=== PATIENT | male | born 1970 | race Caucasian/White ===

== ENCOUNTER 2019-02-05 11:07 | Day surgery (SDC) | payer SELFPAY ==
[~2019-02-05 11:07] MED LIST: HYDROmorphone 2 MG/ML VIAL IV PRN; IV RINGERS,LACTATED 1000ML 1,000 ML IV SCH; MORPHINE SULFATE 2 MG/ML VIAL. IV PRN; ONDANSETRON PF 4 MG/2 ML VIAL. IV PRN; PROCHLORPERAZINE 10 MG/2 ML VIAL. IV PRN; fentaNYL PF VIAL 100 MCG/2 ML VIAL IV PRN
[2019-02-05] MEDS ORDERED: DORZ10DR21 EACHEYE (11:37)
[2019-02-05] MEDS ORDERED: CETI10TA22 PO (11:37)
[2019-02-05] MEDS ORDERED: LATA2.5D3 EACHEYE (11:37)
[2019-02-05] MEDS ORDERED: SIMV20TA18 PO (11:37)
[2019-02-05] MEDS ORDERED: PROPOFOL 20 ML IV ONE (11:50)
[2019-02-05] MEDS ORDERED: LIDOCAINE 2% PF 5 ML VIAL. ONE (11:50)
[2019-02-05] MEDS ORDERED: DEXAMETHASONE SOD PHOS 4 MG/ML VIAL ONE (11:50)
[2019-02-05] MEDS ORDERED: ONDANSETRON PF 4 MG/2 ML VIAL. ONE (11:50)
[2019-02-05] MEDS ORDERED: fentaNYL PF VIAL 100 MCG/2 ML VIAL ONE ×2 (11:51→13:41)
[2019-02-05] MEDS ORDERED: MIDAZOLAM HCL/PF 2 MG/2 ML VIAL. ONE (11:51)
[2019-02-05] MEDS ORDERED: BUPIVACAINE-EPI 0.5%-1:200000 MPF 30 ML VIAL. INJ ONE (12:45)
[2019-02-05] MEDS ORDERED: BACITRACIN 50,000 UNIT in IV NORMAL SALINE 500ML BAG 500 ML IRR ONE (13:00)
[2019-02-05] MEDS ORDERED: SEVOFLURANE 61 TO 120 MINUTES. IH ONE (13:29)
[2019-02-05] MEDS ORDERED: PHENYLEPHRINE in 0.9% NACL PF 1 MG/10 ML SYRINGE. IV ONE (13:29)
[2019-02-05] MEDS ORDERED: KETOROLAC 30 MG/ML VIAL. ONE (13:38)
--- NOTE | 2019-02-05 14:13 | PDOC4 ---
Operative Note Operative Note Operative Note: Preoperative Diagnosis: Left inguinal hernia Postoperative Diagnosis: Left inguinal hernia Procedure: Left inguinal hernia repair with mesh Surgeon: Chance Key Operator: Darlene GUZMAN Anesthesia: Gen. EBL: 10 mL Specimen: Hernia sac to pathology Drains: None Complications: None Indication: The patient is a 48-year-old male who is referred due to a left inguinal hernia. He was offered surgical repair. The risks of surgery were discussed which include bleeding, infection, recurrence, pain, anesthetic risk, potential need for additional surgery or procedure. He understands and would like to proceed. Description: The patient was taken the operating room and placed supine on the operating table. Gen. anesthesia was performed. The left groin was shaved and prepped with ChloraPrep and draped in a standard surgical manner. An incision was made in the skin lines of left groin with a scalpel. Cautery dissection was carried down to the external oblique aponeurosis. The aponeurosis was opened down to the external ring. The contents of the inguinal canal were digitally mobilized and encircled with a Farnham drain. The patient had a moderate sized indirect hernia sac present. The sac was mobilized from the surrounding tissues. Some of the redundant sac was excised and sent as a specimen to pathology. The remaining stump was inverted and the defect filled with a small Phasix mesh plug. The plug was sutured into position with 2-0 Vicryl. The inguinal floor showed some definite weakness. The entire inguinal floor was then reinforced with a keyhole Prolene mesh patch. The mesh was sutured around its periphery with interrupted 2-0 Vicryl. A slit was made to accommodate the cord structures. Upon completion the mesh rested well providing full coverage of the inguinal floor and the plug remained intact deep to it. The external oblique was closed over the mesh with 2-0 Vicryl. The subcutaneous tissue was closed with 3-0 Vicryl. The skin was approximated with 4-0 Monocryl. The incision was infiltrated with half percent Marcaine with epinephrine. Steri-Strips and a sterile dressing were applied. The patient tolerated the procedure well and was sent to the recovery room in stable condition. At the end of the case all counts were correct. ZURI ARTHUR MD Feb 05, 2019 14:13
--- NOTE | 2019-02-05 14:16 | DISCH ---
DISCHARGE INSTRUCTIONS Condition on Discharge Condition on Discharge: Unstable Activity After Discharge Activity Instructions for Disc: Other, see below (no lifting over 20 lbs) Driving Instructions after Dis: Other, see below (no driving while taking pain meds) Diet after Discharge Diet after Discharge: Regular Wound Incision Care Wound/Incision Care: Other, see below (keep dressing clean and dry X 72 hours, may then remove and shower) Follow-Up Follow up with: Dr Arthur in 2 weeks, call for appt, ZURI ARTHUR MD Feb 05, 2019 14:15
[2019-02-05] MEDS: fentaNYL PF VIAL 100 MCG/2 ML VIAL IV PRN ×4 (14:28→15:33)
[2019-02-05] MEDS ORDERED: OXYC1TAB15 PO (14:33)
[2019-02-05] MEDS ORDERED: oxyCODONE/APAP 5/325 1 TAB TABLET PO ONE (15:15)
[2019-02-05 15:38] VITALS: BP 131/80
--- NOTE | 2019-02-08 09:07 | PATHOLOGY ---
[facility] Accession Number: [id number] . 01 Material submitted: . hernia - INGUINAL HERNIA SAC. Modifiers: inguinal . 01 Clinical history: . Inguinal hernia. . 02 Diagnosis: "Inguinal hernia sac", herniorrhaphy: - Hernia sac with focal fibrosis. . ([facility]:mm; 02/07/2019) [facility] 02/07/2019 1622 Local . 02 Electronically signed: . Gregorio Koehler MD, Pathologist NPI- [id number] . 01 Gross description: . Received in formalin labeled "[place] Benitez, inguinal hernia sac" is a portion of pink-herzog membranous soft tissue measuring 4.5 x 1.8 x 0.5 cm. Motor Equipment Captain sections are submitted in cassette A1. ([facility]; 02/06/2019) [facility] 02/06/2019 1924 Local . 02 Pathologist provided ICD-10: K40.90 . 02 CPT . 924855 Specimen Comment: A courtesy copy of this report has been sent to [phone] Specimen Comment: [id number] Specimen Comment: Report sent to and Performed at: 01 [facility] [address], [place] [id number] MD Duran Lee MD Phone: [phone] Performed at: 02 [facility] [address] [place], [place] [id number] MD Gonzalo Diezt MD Phone: [phone]
== END 2019-02-05 16:24 | disposition home or self-care (01) ==
LOC: SURG 11:07
PROVIDERS: ATTEND Surgery
DX: K40.90 Unilateral inguinal hernia, without obstruction or gangrene, not specified as recurrent (principal); E78.00 Pure hypercholesterolemia, unspecified; H40.9 Unspecified glaucoma
CPT/HCPCS: 49505; A7015; C1781; J0696; J1100; J1885; J2001; J2250; J2370; J2405; J2704; J3010; J3490; J7040

== ENCOUNTER → 2019-08-02 | Outpatient (CLI) | payer OTHER ==
[~2019-08-02] MED LIST changes: +CETI10TA24 PO; +DORZ10DR21 EACHEYE; -HYDROmorphone 2 MG/ML VIAL IV PRN; -IV RINGERS,LACTATED 1000ML 1,000 ML IV SCH; +LATA2.5D3 EACHEYE; -MORPHINE SULFATE 2 MG/ML VIAL. IV PRN; -ONDANSETRON PF 4 MG/2 ML VIAL. IV PRN; +OXYC1TAB15 PO; -PROCHLORPERAZINE 10 MG/2 ML VIAL. IV PRN; +SIMV20TA18 PO; -fentaNYL PF VIAL 100 MCG/2 ML VIAL IV PRN
--- NOTE | 2019-08-02 15:31 | RAD ---
PQRS Compliance Statement: One or more of the following individualized dose reduction techniques were utilized for this examination: 1. Automated exposure control 2. Adjustment of the mA and/or kV according to patient size 3. Use of iterative reconstruction technique CT PELVIS WO CONTRAST 08/02/2019 2:30 PM Indication: Left groin pain, inguinal hernia repair COMPARISON: None available. TECHNIQUE: Multiple axial CT images of the pelvis were obtained with intravenous contrast. Coronal and sagittal reformats are provided. FINDINGS: Small large bowel are normal in caliber. No bowel obstruction or inflammation. Pelvic vasculature appears intact. Focal soft tissue nodule noted along the left external iliac distribution measures 1.5 cm. There is immediately adjacent to post surgical changes from prior left inguinal hernia repair. There is minimal superficial subcutaneous soft tissues inflammation. Urinary bladder is within normal limits in degree of distention. No suspicious osseous abnormality is identified. IMPRESSION: 1. Left inguinal postsurgical changes are identified from hernia repair. There is focal soft tissue attenuation deep to the hernia repair which could represent a plug versus borderline enlarged lymph node. Correlate with surgical history. There is mild superficial subcutaneous soft tissue inflammation, nonspecific. No bowel is identified in this region. Electronically signed by: Negra Duenas MD (08/02/2019 3:28 PM) [facility]
== END | disposition home or self-care (01) ==
LOC: CT 14:29
PROVIDERS: ATTEND Surgery
DX: K40.90 Unilateral inguinal hernia, without obstruction or gangrene, not specified as recurrent (principal); L08.9 Local infection of the skin and subcutaneous tissue, unspecified
CPT/HCPCS: 72192